=== PATIENT | male | born 1945 | race Caucasian/White ===

== ENCOUNTER 2017-02-15 21:37 | Observation (INO) | payer OTHER, MEDICARE ==
[~2017-02-15] VITALS: Ht 180.3 cm; Wt 98.0 kg
[~2017-02-15 21:37] MED LIST: ASPI81 PO; EZET10 PO; HYDR-3580 PO; LASI20TA PO; LISI-363 PO; METO25 PO; POTA-243 PO; PRAV80TA PO; XARE10TA PO
[2017-02-15 21:55] VITALS: BP 155/73; PULSE 63; RESP 20; TEMP 98; O2SAT 97
[2017-02-15] MEDS ORDERED: MORPHINE SULFATE 4 MG/ML INJ IV PUSH ONE (22:15)
[2017-02-15] MEDS ORDERED: SODIUM CHLORIDE 0.9% FLUSH 10 ML FLUSH IVF PRN (22:15)
[2017-02-15] MEDS ORDERED: ASPIRIN 81 MG CHEW TAB PO ONE (22:15)
--- NOTE | 2017-02-15 22:25 | PD ---
HPI Chief Complaint: Chest Pain Time Seen by Provider: 21:59 Travel History International Travel<30 days: No Contact w/Intl Traveler<30days: No Traveled to known affect area: No History of Present Illness HPI 71yo M with PMH of CAD s/p CABG 2008 presents to the ED with c/o midsternal chest pain since yesterday. States it is pressure like, nonradiating, intermittent and associated with sob at times. Also with some diaphoresis at times. States chest pain is worst with walking. Denies any fever, cough, vomiting, abdominal pain, focal weakness or numbness. Pt's technical support specialist is Dr. Martinez and has not had a stress test for at least 2 years. Pt cant remember last stress test. Pt took aspirin 81mg today. Also took xarelto. PFSH Past Medical History Arthritis: Yes (knees and feet) Cancer: No Cardiovascular Problems: Yes High Cholesterol: Yes Chest Pain: Yes Congestive Heart Failure: Yes COPD: No Cerebrovascular Accident: No Coronary Artery Disease: Yes Diabetes: No Diminished Hearing: No Endocrine: No GERD: Yes Glaucoma: No Genitourinary: No Hepatitis: No Hiatal Hernia: No Hypertension: Yes Immune Disorder: No Musculoskeletal: Yes (ARTHRITIS; BACK PAIN) Neurologic: Yes Psychiatric: No Reproductive: No Respiratory: Yes (COPD -ASBESTOSIS) Migraines: No Myocardial Infarction: Yes Seizures: No Sleep Apnea: No Thyroid Disease: No Ulcer: No Past Surgical History Abdominal Surgery: Yes (SHAY INGUINAL HERNIA SX ; CHOLECYSTECTOMY) Body Medical Devices: NONE Cardiac Surgery: Yes (TRIPLE HEART BY-PASS ANGIOPLASTY (MULTIPLE)) Coronary Artery Bypass Graft: Yes Ear Surgery: No Endocrine Surgery: No Eye Surgery: No Genitourinary Surgery: No Gynecologic Surgery: No Joint Replacement: No Oral Surgery: No Pacemaker: No Thoracic Surgery: No Other Surgery: Yes Social History Alcohol Use: No Tobacco Use: No Substance Use: No Allergies-Medications (Allergen,Severity, Reaction): Coded Allergies: nitroglycerin (Unverified Adverse Reaction, Severe, Headache, 02/15/17) Reported Meds & Prescriptions Reported Meds & Active Scripts Active Reported Potassium Chloride ER (Potassium Chloride) 10 Meq Tab 10 Meq PO DAILY Pravastatin 80 Mg Tab 80 Mg PO DAILY Zetia (Ezetimibe) 10 Mg Tab 10 Mg PO DAILY Lisinopril 10 Mg Tab 10 Mg PO DAILY Xarelto (Rivaroxaban) 20 Mg Tab 20 Mg PO DAILY Lasix (Furosemide) 20 Mg Tab 20 Mg PO DAILY Metoprolol Tartrate 25 Mg Tab 25 Mg PO BID Aspir-81 (Aspirin) 81 Mg Tabdr Review of Systems Except as stated in HPI: all other systems reviewed are Neg Physical Exam Narrative GENERAL: 71yo M in mild distress. SKIN: Focused skin assessment warm/dry. HEAD: Atraumatic. Normocephalic. EYES: Pupils equal and round. No scleral icterus. No injection or drainage. ENT: No nasal bleeding or discharge. Mucous membranes pink and moist. NECK: Trachea midline. No JVD. CARDIOVASCULAR: Regular rate and rhythm. No murmur appreciated. RESPIRATORY: No accessory muscle use. Clear to auscultation. Breath sounds equal bilaterally. GASTROINTESTINAL: Abdomen soft, non-tender, nondistended. No rebound tenderness or guarding. MUSCULOSKELETAL: No obvious deformities. No clubbing. No cyanosis. No edema. NEUROLOGICAL: Awake and alert. No obvious cranial nerve deficits. Motor grossly within normal limits. Normal speech. PSYCHIATRIC: Appropriate mood and affect; insight and judgment normal. Data Data Last Documented VS Vital Signs Date Time Temp Pulse Resp B/P (MAP) Pulse Ox O2 Delivery O2 Flow Rate FiO2 02/16/17 00:00 52 16 126/58 (80) 99 Room Air 02/15/17 21:55 98.0 Orders Orders Basic Metabolic Panel (Bmp) (02/15/17 22:07) Complete Blood Count With Diff (02/15/17 22:07) Magnesium (Mg) (02/15/17 22:07) Prothrombin Time / Inr (Pt) (02/15/17 22:07) Act Partial Throm Time (Ptt) (02/15/17 22:07) Troponin I (02/15/17 22:07) Chest, Single Ap (02/15/17 22:07) Ecg Monitoring (02/15/17 22:07) Bilateral Bp Monitoring (02/15/17 22:07) Iv Access Insert/Monitor (02/15/17 22:07) Oximetry (02/15/17 22:07) Oxygen Administration (02/15/17 22:07) Aspirin Chew (Aspirin Chew) (02/15/17 22:15) Morphine Inj (Morphine Inj) (02/15/17 22:15) Sodium Chloride 0.9% Flush (Ns Flush) (02/15/17 22:15) B-Type Natriuretic Peptide (02/15/17 22:32) Electrocardiogram (02/15/17 ) Admit Order (Ed Use Only) (02/16/17 00:47) Activity Bed Rest With Brp (02/16/17 00:47) Vital Signs (Adult) Q4H (02/16/17 00:47) Cardiac Rhythm .As Directed (02/16/17 00:47) Notify Dr: Other .PRN (02/16/17 00:47) Notify DrJesus Parameters (02/16/17 00:47) Resp Oxygen Nasal Cannula (02/16/17 ) Ckmb (Isoenzyme) Profile (02/16/17 00:47) Ckmb (Isoenzyme) Profile (02/16/17 03:47) Troponin I (02/16/17 00:47) Troponin I (02/16/17 03:47) Electrocardiogram (02/16/17 00:47) Electrocardiogram (02/16/17 03:47) ^ Obtain (02/16/17 00:47) Sodium Chloride 0.9% Flush (Ns Flush) (02/16/17 01:00) Sodium Chloride 0.9% Flush (Ns Flush) (02/16/17 09:00) Website Designer / Telemetry [email or web address] (02/16/17 00:47) Morphine Inj (Morphine Inj) (02/16/17 01:00) Labs Laboratory Tests Test 02/15/17 21:49 White Blood Count 6.3 TH/MM3 Red Blood Count 3.84 MIL/MM3 Hemoglobin 13.2 GM/DL Hematocrit 39.7 % Mean Corpuscular Volume 103.5 FL Mean Corpuscular Hemoglobin 34.5 PG Mean Corpuscular Hemoglobin Concent 33.3 % Red Cell Distribution Width 12.2 % Platelet Count 231 TH/MM3 Mean Platelet Volume 7.4 FL Neutrophils (%) (Auto) 56.8 % Lymphocytes (%) (Auto) 30.6 % Monocytes (%) (Auto) 8.1 % Eosinophils (%) (Auto) 3.9 % Basophils (%) (Auto) 0.6 % Neutrophils # (Auto) 3.6 TH/MM3 Lymphocytes # (Auto) 1.9 TH/MM3 Monocytes # (Auto) 0.5 TH/MM3 Eosinophils # (Auto) 0.2 TH/MM3 Basophils # (Auto) 0.0 TH/MM3 CBC Comment DIFF FINAL Differential Comment Prothrombin Time 10.9 SEC Prothromb Time International Ratio 1.0 RATIO Activated Partial Thromboplast Time 28.9 SEC Blood Urea Nitrogen 19 MG/DL Creatinine 1.16 MG/DL Random Glucose 102 MG/DL Calcium Level 8.6 MG/DL Magnesium Level 2.3 MG/DL Sodium Level 141 MEQ/L Potassium Level 3.9 MEQ/L Chloride Level 108 MEQ/L Carbon Dioxide Level 25.8 MEQ/L Anion Gap 7 MEQ/L Estimat Glomerular Filtration Rate 62 ML/MIN Troponin I LESS THAN 0.02 NG/ML B-Type Natriuretic Peptide 124 PG/ML [facility] Medical Decision Making Medical Screen Exam Complete: Yes Emergency Medical Condition: Yes Interpretation(s) EKG: NSR 60bpm. TWI III. No significant ST elevation. Differential Diagnosis ACS vs. GERD vs. musculoskeletal pain Narrative Course 71yo M with midsternal chest pain that is typical since yesterday. Pt's PMH is significant for CAD s/p CABG and CHF. Review of records showed that pt had cardiac cath in 09/2011 for recurrent chest pain and found to have 3 vessel CAD with normal revascularization from bypass grafts, which all are patent. Xarelto was added. Pt took his aspirin 81mg today, will add another 81mg. Pt is refusing nitroglycerin because it gives him bad headaches. Will give IV morphine. Will obtain cardiac enzymes and CXR. Labs reviewed, no leukocytosis. Troponin negative. BNP mildly increased at 124. CXR showed left base atelectasis. Pt reevaluated after morphine and chest pain has improved. Pt has CAD and has not had any recent stress test. Will admit to chest pain center for serial EKG and cardiac enzyme. Diagnosis Primary Impression: Chest pain Qualified Codes: R07.9 - Chest pain, unspecified Admitting Information Admitting Physician Requests: Bárbara Ha DO Feb 15, 2017 22:25
[2017-02-15] MEDS ORDERED: FURO1TAB62 PO (22:34)
[2017-02-15] MEDS ORDERED: METO25TA3 PO (22:34)
[2017-02-15] MEDS ORDERED: XARE20TA PO (22:34)
[2017-02-15] MEDS ORDERED: ASPI81TA81 (22:34)
[2017-02-15] MEDS ORDERED: ZETI10TA5 PO (22:35)
[2017-02-15] MEDS ORDERED: POTA10TA2 PO (22:35)
[2017-02-15] MEDS ORDERED: PRAV80TA2 PO (22:35)
[2017-02-15] MEDS ORDERED: LISI10TA3 PO (22:35)
--- NOTE | 2017-02-15 22:38 | RADRPT ---
EXAM DATE/TIME: 02/15/2017 22:04 [facility] COMPARISON: No previous studies available for comparison. INDICATIONS : Chest pain. MEDICAL HISTORY : Chronic obstructive pulmonary disease. SURGICAL HISTORY : CABG. ENCOUNTER: Initial ACUITY: 1 day PAIN SCORE: 9/10 LOCATION: Bilateral chest FINDINGS: A single view of the chest demonstrates the patient to be status post sternotomy. There is linear den sity at the left base. The right lung is clear. No effusion is seen. Osseous structures are intact. CONCLUSION: Left base atelectasis. Kapil Fulton MD on February 15, 2017 at 22:36 Board Certified Radiologist. This report was verified electronically.
[2017-02-15 22:55] LABS: AUTOMATED NEUTROPHIL # 3.6 TH/MM3 (1.8-7.7); BASOPHIL % 0.6 % (0.0-2.0); EOSINOPHIL # 0.2 TH/MM3 (0-0.4); EOSINOPHIL % 3.9 % (0.0-4.0); HEMATOCRIT 39.7 % (39.0-51.0); HEMO FLAGS DIFF FINAL; LYMPH % 30.6 % (9.0-44.0); LYMPHOCYTE # 1.9 TH/MM3 (1.0-4.8); MEAN CELL VOLUME 103.5 FL (80.0-100.0); MEAN CORPUSCULAR HEMOGLOBIN 34.5 PG (27.0-34.0); MEAN CORPUSCULAR HGB CONC 33.3 % (32.0-36.0); MONO % 8.1 % (0.0-8.0); NEUT % 56.8 % (16.0-70.0); PLATELET COUNT 231 TH/MM3 (150-450); RED BLOOD COUNT 3.84 MIL/MM3 (4.50-5.90); RED CELL DISTRIBUTION WIDTH 12.2 % (11.6-17.2); WHITE BLOOD COUNT 6.3 TH/MM3 (4.0-11.0)
[2017-02-15 23:02] LABS: APTT (PATIENT) 28.9 SEC (24.3-30.1); PROTHROMBIN TIME - PATIENT 10.9 SEC (9.8-11.6)
[2017-02-15 23:10] LABS: ANION GAP 7 MEQ/L (5-15); BICARBONATE 25.8 MEQ/L (21.0-32.0); BLOOD UREA NITROGEN 19 MG/DL (7-18); CHLORIDE 108 MEQ/L (98-107); GLOMERULAR FILTRATION RATE 62 ML/MIN (>89); MAGNESIUM 2.3 MG/DL (1.5-2.5); POTASSIUM 3.9 MEQ/L (3.5-5.1); SODIUM (NA) 141 MEQ/L (136-145)
[2017-02-16] VITALS (11 sets, daily range): BP systolic 102–205; BP diastolic 57–79; PULSE 52–60; RESP 16–18; TEMP 97.6–98.2; O2SAT 95–99
[2017-02-16] MEDS ORDERED: MORPHINE SULFATE 4 MG/ML INJ IV PUSH ONE (01:00)
[2017-02-16] MEDS ORDERED: SODIUM CHLORIDE 0.9% FLUSH 10 ML FLUSH IV FLUSH PRN (01:00)
[2017-02-16 02:13] LABS: CREATINE KINASE 250 U/L (39-308)
[2017-02-16 02:26] LABS: CKMB 3.1 NG/ML (0.5-3.6)
[2017-02-16 05:08] LABS: CREATINE KINASE 234 U/L (39-308)
[2017-02-16 05:21] LABS: CKMB 3.5 NG/ML (0.5-3.6)
--- NOTE | 2017-02-16 08:13 | HHI.HP ---
HPI Primary Care Physician Casper March M.D. Chief Complaint Chest pain History of Present Illness 71-year-old male with past medical history of coronary artery disease including CABG 3 2008 presents to the emergency room for further evaluation of chest pressure. Onset 2 days ago. Location right inframammary area. Characterized as intermittent pressure. Nonexertional. Duration has been constant. Taking a deep breath makes pain worse. No associated symptoms of nausea, vomiting, diaphoresis, or shortness of breath. No radiation. No known precipitating or relieving factors. Questions of pain could be musculoskeletal, stating he has in the process of moving from [place] to [place], [place]. Review of Systems General: No fatigue,weakness, fever, chills, or recent illness. Has been in his general state of health. HEENT: No ÁLVAREZ, no nasal congestion or drainage CV: As stated above. CABG x3 2009. Has been told he had a heart attack at some point. No palpitations, intermittent leg pain, or dizziness. RESP: No SOB, cough, or recent URI. GI: No nausea, vomiting, bowel changes, diarrhea, or blood in the stool. : No dysuria EXT: No lower leg edema, no paraesthesias MS: No change in ROM, no trauma, no recent fall, no known injury. Endorses he is in the process of moving. NEURO: No change in memory, difficulty with balance, LOC, motor/sensory deficits PSYCH: No anxiety or depression. Situational stress regarding 's health issues. Moving to [place] for assistance with 's health issues, 's family lives in [place]. SKIN: No rashes, no concerning lesions Past Family Social History Allergies: Coded Allergies: nitroglycerin (Unverified Adverse Reaction, Severe, Headache, 02/15/17) Past Medical History CHF, CAD, hypertension orders well nitroglycerin and d-dimer elevated Past Surgical History CABG x3 (2008), bilateral inguinal hernia, cholecystectomy Reported Medications Reported Meds & Active Scripts Active Reported Potassium Chloride ER (Potassium Chloride) 10 Meq Tab 10 Meq PO DAILY Pravastatin 80 Mg Tab 80 Mg PO DAILY Zetia (Ezetimibe) 10 Mg Tab 10 Mg PO DAILY Lisinopril 10 Mg Tab 10 Mg PO DAILY Xarelto (Rivaroxaban) 20 Mg Tab 20 Mg PO DAILY Lasix (Furosemide) 20 Mg Tab 20 Mg PO DAILY Metoprolol Tartrate 25 Mg Tab 25 Mg PO BID Aspir-81 (Aspirin) 81 Mg Tabdr Active Ordered Medications Current Medications Medications (Trade) Dose Ordered Sig/Delio Route Start Time Stop Time Status Last Admin (NS Flush) 2 ml UNSCH PRN IVF 02/15/17 22:15 (NS Flush) 2 ml UNSCH PRN IV FLUSH 02/16/17 01:00 (NS Flush) 2 ml BID IV FLUSH 02/16/17 09:00 Social History Known CAD, DM, HTN, and Hyperlipidemia. Quit smoking "a long time ago" can't remember when. Denies any alcohol or illegal drug use. . Past Cardiac Testing 10/14/2011-Left and right heart catheterization (Dr. Halina Martinez)-Conclusions- 1. Moderately impaired systolic and diastolic function. 2. Elevation of pulmonary capillary wedge pressure with borderline for work cardiac output consistent with hemodynamic findings for congestive heart failure. 3. Mild mitral insufficiency associated with mild mitral valve prolapse. 4. 3 vessel coronary artery disease as described felt with normal revascularization through the bypass graft, all of which are patent from the original surgery. 5. Compromise of flow into the right ventricular branch from the right coronary artery but now with high-grade disease in perfusion of this redistribution should be adequate. Physical Exam Vital Signs Vital Signs Date Time Temp Pulse Resp B/P (MAP) Pulse Ox O2 Delivery O2 Flow Rate FiO2 02/16/17 07:37 97.6 55 18 106/57 (73) 97 02/16/17 07:23 98 21 02/16/17 04:57 98.1 57 18 115/70 (85) 98 02/16/17 04:01 60 02/16/17 02:22 54 02/16/17 02:17 98.2 55 18 110/65 (80) 96 02/16/17 01:48 02/16/17 01:47 53 18 115/59 (77) 95 Room Air 02/16/17 01:39 98 02/16/17 00:00 52 16 126/58 (80) 99 Room Air 02/15/17 21:55 98.0 63 20 155/73 (100) 97 Physical Exam GENERAL: Alert WN, WD, NAD, pleasant, elderly male CV: RRR, without murmur, rub, gallop, no JVD, S1-S2 no S3-S4. RESP: Clear lungs throughout bilateral, no crackles, wheeze, rhonchi, symmetrical chest rise, nonlabored, able to speak in full sentences. Chest wall nontender with palpation. ABD: Soft, NT, ND, no masses, positive bowel tones BACK: No CVAT, no scoliosis EXT: Pulses +24, no dependent edema MS: Normal tone 4 extremities, nontender, no obvious deformities, full range of motion NEURO: CN II through CN XII grossly intact, motor strength 5/5 PSYCH: A+O 3, pleasant affect, appropriate speech, appropriate mood and affect , insight and judgment SKIN: Normal turgor, normal texture, midline surgical chest scar, brisk cap refill, even hair distribution Laboratory Laboratory Tests Test 02/15/17 21:49 02/16/17 01:40 02/16/17 04:30 White Blood Count 6.3 Red Blood Count 3.84 Hemoglobin 13.2 Hematocrit 39.7 Mean Corpuscular Volume 103.5 Mean Corpuscular Hemoglobin 34.5 Mean Corpuscular Hemoglobin Concent 33.3 Red Cell Distribution Width 12.2 Platelet Count 231 Mean Platelet Volume 7.4 Neutrophils (%) (Auto) 56.8 Lymphocytes (%) (Auto) 30.6 Monocytes (%) (Auto) 8.1 Eosinophils (%) (Auto) 3.9 Basophils (%) (Auto) 0.6 Neutrophils # (Auto) 3.6 Lymphocytes # (Auto) 1.9 Monocytes # (Auto) 0.5 Eosinophils # (Auto) 0.2 Basophils # (Auto) 0.0 CBC Comment DIFF FINAL Differential Comment Prothrombin Time 10.9 Prothromb Time International Ratio 1.0 Activated Partial Thromboplast Time 28.9 Blood Urea Nitrogen 19 Creatinine 1.16 Random Glucose 102 Calcium Level 8.6 Magnesium Level 2.3 Sodium Level 141 Potassium Level 3.9 Chloride Level 108 Carbon Dioxide Level 25.8 Anion Gap 7 Estimat Glomerular Filtration Rate 62 Troponin I LESS THAN 0.02 LESS THAN 0.02 LESS THAN 0.02 B-Type Natriuretic Peptide 124 Total Creatine Kinase 250 234 Creatine Kinase MB 3.1 3.5 Result Diagram: 02/15/17214802/15/172148 Imaging Last Impressions Myocardial Perfusion Scan Nuc Med 02/16/17 0000 Signed Impressions: Service Date/Time: January 09:51 - CONCLUSION: Small fixed perfusion abnormalities. Mild LV chamber dilatation and dysfunction. No definite ischemia RISK CATEGORY: Intermediate (1-3%% Annual Mortality Rate) Kapil Foster MD Chest X-Ray 02/15/172206 Signed Impressions: Service Date/Time: Monday, February 15, 2017 22:04 - CONCLUSION: Left base atelectasis. Kapil Fulton MD Course EKG Normal sinus bradycardia, normal axis, nonspecific ST changes Caprini VTE Risk Assessment Caprini VTE Risk Assessment: Mod/High Risk (score >= 2) Caprini Risk Assessment Model Point Value = 1 Point Value = 2 Point Value = 3 Point Value = 5 Age 41-60 Minor surgery BMI > 25 kg/m2 Swollen legs Varicose veins or History of unexplained or recurrent spontaneous Oral contraceptives or hormone replacement Sepsis (< 1 month) Serious lung disease, including pneumonia (< 1 month) Abnormal pulmonary function Acute myocardial infarction Congestive heart failure (< 1 month) History of inflammatory bowel disease Medical patient at bed rest Age 61-74 Arthroscopic surgery Major open surgery (> 45 min) Laparoscopic surgery (> 45 min) Malignancy Confined to bed (> 72 hours) Immobilizing plaster cast Central venous access Age >= 75 History of VTE Family history of VTE Factor V Leiden Prothrombin [id number] Lupus anticoagulant Anticardiolipin antibodies Elevated serum homocysteine Heparin-induced thrombocytopenia Other congenital or acquired thrombophilia Stroke (< 1 month) Elective arthroplasty Hip, pelvis, or leg fracture Acute spinal cord injury (< 1 month) Prophylaxis Regimen Total Risk Factor Score Risk Level Prophylaxis Regimen 0-1 Low Early ambulation 2 Moderate Order ONE of the following: *Sequential Compression Device (SCD) *Heparin 5000 units SQ BID 3-4 Higher Order ONE of the following medications: *Heparin 5000 units SQ TID *Enoxaparin/Lovenox 40 mg SQ daily (WT < 150 kg, CrCl > 30 mL/min) *Enoxaparin/Lovenox 30 mg SQ daily (WT < 150 kg, CrCl > 10-29 mL/min) *Enoxaparin/Lovenox 30 mg SQ BID (WT < 150 kg, CrCl > 30 mL/min) AND/OR *Sequential Compression Device (SCD) 5 or more Highest Order ONE of the following medications: *Heparin 5000 units SQ TID (Preferred with Epidurals) *Enoxaparin/Lovenox 40 mg SQ daily (WT < 150 kg, CrCl > 30 mL/min) *Enoxaparin/Lovenox 30 mg SQ daily (WT < 150 kg, CrCl > 10-29 mL/min) *Enoxaparin/Lovenox 30 mg SQ BID (WT < 150 kg, CrCl > 30 mL/min) AND *Sequential Compression Device (SCD) Assessment and Plan Assessment and Plan Atypical chest pain-admitted to chest pain center. Ruled out with 3 sets of EKGs, cardiac enzymes, and monitored night. Seen and evaluated by Dr. Светлана Ya. Proceed with chemical stress test. If unremarkable will discharge later this afternoon with follow-up with PCP. Will notify [facility] heart group of patients admission. Patient agreeable to plan of care. History of CAD-continue metoprolol, pravastatin, aspirin, and Xarelto Hypertension-continue lisinopril History of KUR-tovrwedh-sslxsragic and KCL 12:[address] Ya. Discharge this afternoon with amlodipine 2.5mg daily. Follow with with Dr. Martinez. Vonnie Ramachandran Feb 16, 2017 08:13
[2017-02-16] MEDS ORDERED: ACETAMINOPHEN 500 MG CPLT PO PRN (08:15)
[2017-02-16] MEDS ORDERED: NITROGLYCERIN 0.4 MG SL 25 TABS/BTL SL PRN (08:15)
[2017-02-16] MEDS ORDERED: ONDANSETRON HCL 4 MG/2 ML VIAL IV PRN (08:15)
[2017-02-16] MEDS ORDERED: SODIUM CHLORIDE 0.9% FLUSH 10 ML FLUSH IV FLUSH SCH (09:00)
[2017-02-16] MEDS ORDERED: ASPIRIN 325 MG TAB PO SCH (09:00)
[2017-02-16] MEDS ORDERED: REGADENOSON INJ 0.4 MG/5 ML SYR ONE (10:13)
--- NOTE | 2017-02-16 12:23 | RADRPT ---
EXAM DATE/TIME: 02/16/2017 09:51 [facility] COMPARISON: No previous studies available for comparison. INDICATIONS : Midsternal chest pain with dyspnea and diaphoresis. Angina. DOSE: 27.2 mCi Tc99m Myoview at stress. 8.8 mCi Tc99m Myoview at rest. 0.4 mg Lexiscan STRESS SYMPTOMS: Chest heaviness, dyspnea and nausea. EJECTION FRACTION: 42% MEDICAL HISTORY : Myocardial infarction. Congestive heart failure. Hypercholesterolemia. Hypertension. GERD. SURGICAL HISTORY : CABG Cholecystectomy. ENCOUNTER: Initial ACUITY: 1 day PAIN SCALE: 6/10 LOCATION: Midsternal chest TECHNIQUE: The patient underwent pharmacologic stress with infusion of prescribed dose. Continuous ECG tracing was monitored during stress. Gated SPECT imaging was performed after stress and conventional SPECT i maging was performed at rest. The examination was performed on a SPECT/CT scanner, both attenuation and non-corrected datasets were reviewed. FINDINGS: DISTRIBUTION: The maximum perfused segment at stress is in the lateral wall. PERFUSION STUDY: There is severely diminished focal perfusion involving a small area of the high anterolateral wall an d mildly diminished relative perfusion involving the infero-apical region. These abnormalities appear fixed. GATED STUDY: Mild left ventricular chamber dilatation and global hypokinesis. CONCLUSION: Small fixed perfusion abnormalities. Mild LV chamber dilatation and dysfunction. No definite ischemia RISK CATEGORY: Intermediate (1-3% Annual Mortality Rate) Kapil Foster MD on February 16, 2017 at 12:10 Board Certified Radiologist. This report was verified electronically.
[2017-02-16] MEDS ORDERED: FUROSEMIDE 20 MG TAB PO SCH (13:45)
[2017-02-16] MEDS ORDERED: LISINOPRIL 10 MG TAB PO SCH (13:45)
[2017-02-16] MEDS ORDERED: METOPROLOL TARTRATE 25 MG TAB PO SCH (13:45)
[2017-02-16] MEDS ORDERED: RIVAROXABAN 20 MG TAB PO SCH (13:45)
[2017-02-16] MEDS ORDERED: EZETIMIBE 10 MG TAB PO SCH (13:45)
[2017-02-16] MEDS ORDERED: POTASSIUM CHLORIDE 10 MEQ CONTROLLED RELEASE TAB PO SCH (13:45)
[2017-02-16] MEDS ORDERED: PRAVASTATIN SOD 80 MG TAB PO SCH (13:45)
[2017-02-16] MEDS ORDERED: AMLO2.5T PO (14:08)
--- NOTE | 2017-02-16 14:09 | HHI.DCPOC ---
Discharge Care Plan Diagnosis: (1) Hx of coronary artery disease (2) Atypical chest pain (3) Type 2 diabetes mellitus Goals to Promote Your Health * To prevent worsening of your condition and complications * To maintain your health at the optimal level Directions to Meet Your Goals Take your medications as prescribed Follow your dietary instruction Follow activity as directed Keep your appointments as scheduled Take your immunizations and boosters as scheduled If your symptoms worsen call your PCP, if no PCP go to Urgent Care Center or Emergency Room Smoking is Dangerous to Your Health. Avoid second hand smoke Call the 24-hour hour crisis hotline for domestic abuse at Vonnie Ramachandran Feb 16, 2017 14:09
--- NOTE | 2017-02-16 18:10 | TR ---
Date Performed: 02/16/2017 Time Performed: 10:34:29 DOCTOR: Светлана Ya DRUG LIST: CLINICAL HISTORY: REASON FOR TEST: CHEST PAIN REASON FOR ENDING: OBSERVATION: CONCLUSION: Lexiscan stress test was performed under standard four minute protocol. Radionuclid e was injected one minute prior to ending the test. No electrocardiographic abormalities were present to suggest ischemia. Nuclear imaging and interpretation are pending. COMMENTS:
--- NOTE | 2017-02-16 18:12 | EKG ---
Date Performed: 02/16/2017 Time Performed: 03:56:10 PTAGE: 71 years EKG: SINUS BRADYCARDIA WITH FIRST DEGREE AV BLOCK BORDERLINE RIGHT AXIS DEVIATION LOW QRS VOLTAG E IN EXTREMITY LEADS ABNORMAL ECG Since PREVIOUS TRACING , no significant change noted PREVIOUS TRACIN02/16/2017 01.43 DOCTOR: Светлана Ya Interpretating Date/Time 02/16/2017 18:11:34
--- NOTE | 2017-02-16 18:13 | EKG ---
Date Performed: 02/16/2017 Time Performed: 01:43:38 PTAGE: 71 years EKG: SINUS BRADYCARDIA WITH FIRST DEGREE AV BLOCK BORDERLINE RIGHT AXIS DEVIATION NONSPECIFIC T- WAVE ABNORMALITY ABNORMAL ECG Since PREVIOUS TRACING , no significant change noted PREVIOUS TRACIN10/14/2011 09.53 DOCTOR: Светлана Ya Interpretating Date/Time 02/16/2017 18:12:36
--- NOTE | 2017-02-16 18:14 | EKG ---
Date Performed: 02/15/2017 Time Performed: 21:44:25 PTAGE: 71 years EKG: Sinus rhythm NORMAL ECG Since PREVIOUS TRACING , no significant change noted PREVIOUS TRACIN02/10/2017 06.45 DOCTOR: Светлана Ya Interpretating Date/Time 02/16/2017 18:13:27
== END 2017-02-16 15:54 | disposition home or self-care (01) ==
LOC: NEPE 21:37 → NEDA 02-16 00:48 → NEPFCDU 02-16 02:01
PROVIDERS: ADMIT Internal Medicine Cardiovascular Disease; ATTEND Internal Medicine Cardiovascular Disease
DX: R07.9 Chest pain, unspecified (principal); R07.89 Other chest pain; R94.31 Abnormal electrocardiogram [ECG] [EKG]; E78.5 Hyperlipidemia, unspecified; I25.10 Atherosclerotic heart disease of native coronary artery without angina pectoris; E78.00 Pure hypercholesterolemia, unspecified; E11.9 Type 2 diabetes mellitus without complications; Z95.1 Presence of aortocoronary bypass graft; Z79.82 Long term (current) use of aspirin; K21.9 Gastro-esophageal reflux disease without esophagitis
CPT/HCPCS: 71010; 78452; 80048; 82550; 82552; 83735; 83880; 84484; 85025; 85610; 85730; 93005; 93017; 96374; 96376; 99285; A9502; G0378; J2270; J2785